=== PATIENT | male | born 1995 | race American Indian/Alaskan Native ===

== ENCOUNTER 2018-07-12 14:54 | Emergency (ER) | payer SELFPAY ==
[2018-07-12 15:22] VITALS: BP 123/72
--- NOTE | 2018-07-12 15:22 | Emergency Department Report ---
Blank Doc - Documentation Documentation: 23 yo male presents to light sensitivity causing headaches, stating he wants a referral for neurologist hx of schizoprenia a bit anxious, denies HI/SI/AH/VH no meds in 1 year Psych Eval [facility]
[2018-07-12 15:48] LABS: Amphetamine Screen,Urine PRESUMPTIVE NEGATIVE; Benzodiazepines Screen,Urine PRESUMPTIVE NEGATIVE; Cannabinoid Screen,Urine PRESUMPTIVE NEGATIVE; Cocaine Screen,Urine PRESUMPTIVE NEGATIVE; Methadone Screen,Urine PRESUMPTIVE NEGATIVE; Opiate Screen,Urine PRESUMPTIVE NEGATIVE
== END 2018-07-12 15:45 | disposition left against medical advice (07) ==
LOC: ED 14:54
DX: R51 Headache (principal); Z53.21 Procedure and treatment not carried out due to patient leaving prior to being seen by health care provider
CPT/HCPCS: 80307